=== PATIENT | female | born 2005 | race Caucasian/White ===

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

== ENCOUNTER 2025-01-20 11:08 | Outpatient (CLI) | payer BC, SELFPAY | END 2025-01-20 11:09 | disposition home or self-care (01) | PROVIDERS: PCP Family Medicine; Visit Provider Family Medicine | DX: R10.9 Unspecified abdominal pain (principal); R55 Syncope and collapse | CPT/HCPCS: 80053; 84443; 86140; 86364 ==